=== PATIENT | female | born 1980 | race American Indian/Alaskan Native ===

== ENCOUNTER 2018-10-25 20:39 | Emergency (ER) | payer BC, MEDICAID ==
[2018-10-25 21:08] VITALS: BMI 31.8
[2018-10-25 21:09] VITALS: RESP 18; TEMP 99.3
[2018-10-25] MEDS ORDERED: Amoxicillin-Clav 400-57 mg/5 ml Susp (50 ml) PO STA (21:38)
--- NOTE | 2018-10-25 22:50 | ED PDOC ---
Arrival/HPI - General Chief Complaint: Headache Time Seen by Provider: 10/25/18 21:20 Historian: Patient - History of Present Illness Narrative History of Present Illness (Text): PMH of recurrent sinusitis Sinus pressure and rhinorrhea x 4 days Pain typically relieved by motrin, not today. Last dose early this AM. Never seen ENT, PMD usually puts on antibiotics Denies fever, chills, vision changes, dizziness, neck pain/stiffness, cough, nausea, vomiting, abdominal pain, back pain, chest pain, SOB, or any other associated symptoms. Past Medical History - Provider Review Nursing Documentation Reviewed: Yes - Past History Past History: No Previous - Infectious Disease Hx of Infectious Diseases: None - Tetanus Immunization Tetanus Immunization: Unknown - Cardiac Hx Cardiac Disorders: Yes - Pulmonary Hx Respiratory Disorders: No - Neurological Hx Neurological Disorder: No - HEENT Hx HEENT Disorder: No - Renal Hx Renal Disorder: No - Endocrine/Metabolic Hx Endocrine Disorders: No - Hematological/Oncological Hx Blood Disorders: No - Integumentary Hx Dermatological Disorder: No - Musculoskeletal/Rheumatological Hx Musculoskeletal Disorders: No - Gastrointestinal Hx Gastrointestinal Disorders: Yes Hx Gastroesophageal Reflux: Yes - Genitourinary/Gynecological Hx Genitourinary Disorders: No - Psychiatric Hx Psychophysiologic Disorder: No Hx Substance Use: No - Past Surgical History Past Surgical History: No Previous - Anesthesia Hx Anesthesia: No Hx Anesthesia Reactions: No Family/Social History - Physician Review Nursing Documentation Reviewed: Yes Family/Social History: No Known Family HX Smoking Status: Never Smoked Hx Alcohol Use: Yes Hx Substance Use: No Allergies/Home Meds Allergies/Adverse Reactions: Allergies No Known Allergies Allergy (Verified 10/25/18 21:08) per patient Review of Systems - Review of Systems Constitutional: Normal. absent: Fevers Eyes: Normal. absent: Vision Changes, Photophobia, Eye Pain ENT: Rhinorrhea, Sinus Congestion. absent: Sore Throat Respiratory: Normal. absent: SOB, Cough Cardiovascular: Normal. absent: Chest Pain, Palpitations Gastrointestinal: Normal. absent: Abdominal Pain, Nausea, Vomiting Genitourinary Female: Normal. absent: Dysuria, Frequency Musculoskeletal: Normal. absent: Back Pain, Neck Pain Skin: Normal. absent: Rash Neurological: Headache. absent: Dizziness Endocrine: Normal Hemo/Lymphatic: Normal Psychiatric: Normal Physical Exam Vital Signs Reviewed: Yes Vital Signs Temp Pulse Resp BP Pulse Ox 10/25/18 21:08 99.3 F 79 18 132/89 95 Temperature: Afebrile Blood Pressure: Normal Pulse: Regular Respiratory Rate: Normal Appearance: Positive for: Well-Appearing, Non-Toxic, Comfortable Pain Distress: None Mental Status: Positive for: Alert and Oriented X 3 - Systems Exam Head: Present: Atraumatic, Normocephalic Pupils: Present: PERRL Extroacular Muscles: Present: EOMI Conjunctiva: Present: Normal Mouth: Present: Moist Mucous Membranes Neck: Present: Normal Range of Motion Respiratory/Chest: Present: Clear to Auscultation, Good Air Exchange. No: Respiratory Distress, Accessory Muscle Use Cardiovascular: Present: Regular Rate and Rhythm, Normal S1, S2, Peripheal Pulses Present Abdomen: Present: Normal Bowel Sounds. No: Tenderness, Distention, Peritoneal Signs, Rebound, Guarding Back: Present: Normal Inspection. No: CVA Tenderness, Midline Tenderness, Paraspinal Tenderness Upper Extremity: Present: Normal Inspection, Normal ROM, NORMAL PULSES, Neurovascularly Intact, Capillary Refill < 2s. No: Cyanosis, Edema, Temperature Abnormalties Lower Extremity: Present: Normal ROM Neurological: Present: GCS=15, CN II-XII Intact, Speech Normal, Motor Func Grossly Intact, Normal Sensory Function, Gait Normal Skin: Present: Warm, Dry, Normal Color. No: Rashes Psychiatric: Present: Alert, Oriented x 3, Normal Insight, Normal Concentration Medical Decision Making ED Course and Treatment: Initial Plan: * Augmentin * Ibuprofen * POC preg Pt reports decreased pain with medication. Advised ENT and PMD followup. Diagnostic testing results and plan of care discussed with patient. Strict instructions given regarding prescription use, importance of followup, and signs/symptoms to return to ER including fever, chills, vision changes, dizziness, or any other new/worsening symptoms. Pt verbalized understanding of discussion. Patient is A&Ox3, ambulating with steady gait, with vital signs stable for discharge. - Medication Orders Current Medication Orders: Discontinued Medications Amoxicillin/Clavulanate Potassium (Augmentin 400-57 Mg/5 Ml Susp) 875 mg PO STAT STA; Protocol Stop: 10/25/18 21:39 Last Admin: 10/25/18 22:13 Dose: 875 mg Ibuprofen (Motrin Oral Susp) 600 mg PO STAT STA Stop: 10/25/18 21:40 Last Admin: 10/25/18 22:15 Dose: 600 mg MAR Pain/Vitals Document 10/25/18 22:15 KV (Rec: 10/25/18 22:20 KV [id number]) Pain Reassessment Is This A Pain ReAssessment? No Disposition/Present on Arrival - Present on Arrival Any Indicators Present on Arrival: No History of DVT/PE: No History of Uncontrolled Diabetes: No Urinary Catheter: No History of Decub. Ulcer: No History Surgical Site Infection Following: None - Disposition Have Diagnosis and Disposition been Completed?: Yes Diagnosis: Sinusitis Disposition: HOME/ ROUTINE Disposition Time: 22:49 Condition: IMPROVED Discharge Instructions (ExitCare): Sinusitis in Adults Additional Instructions: Augmentin 10.9mL every 12 hours for 7 days Ibuprofen for headache as needed Increase fluids Rest, no strenuous activity Followup with ENT within 2 days Followup with primary doctor within 2 days Return to ER with any new/worsening symptoms Prescriptions: Amoxicillin/Clavulanate [Augmentin 400-57] 875 mg PO Q12H #142 ml Referrals: Verónica Kelly DO [Primary Care Provider] - Follow up with primary Jamil Galdamez DO [Staff Provider] - Follow up with primary Forms: [facility] ([place]), WORK NOTE
[2018-10-25 23:09] VITALS: BP 129/72; PULSE 56; O2SAT 98
== END 2018-10-25 23:09 | disposition home or self-care (01) ==
LOC: ED 20:39
DX: J32.9 Chronic sinusitis, unspecified (principal)